=== PATIENT | male | born 1940 | race Caucasian/White ===

== ENCOUNTER → 2018-02-22 | Day surgery (SDC) | payer OTHER ==
[2018-02-20 13:41] LABS: BASOPHILS % 0.5 % (0.0-1.0); EOSINOPHILS # (AUTO) 0.2 (0.0-0.4); EOSINOPHILS % 3.2 % (0.0-6.0); HEMATOCRIT 41.5 % (38.2-49.6); HEMOGLOBIN 14.4 g/dL (14.0-18.0); LYMPHOCYTES # (AUTO) 1.4 (1.0-3.2); LYMPHOCYTES % 23.2 % (18.0-39.1); MEAN CORPUSCULAR HEMOGLOBIN 29.6 pg (28-32); MEAN CORPUSCULAR HGB CONC 34.7 g/dL (31-35); MEAN CORPUSCULAR VOLUME 85.2 fL (81-99); MONOCYTES # (AUTO) 0.6 (0.2-0.8); NEUTROPHILS % 63.6 % (38.7-80.0); PLATELET COUNT 193 x10e3/uL (140-360); RED BLOOD COUNT 4.87 x10e6/uL (4.3-5.7); RED CELL DISTRIBUTION WIDTH 13.5 % (11.7-14.4)
[2018-02-20 13:57] LABS: ALANINE AMINOTRANSFERASE 24 IU/L (0-55); ALBUMIN 3.9 g/dL (3.5-5.0); ALBUMIN/GLOBULIN RATIO 1.2 (0.8-2.0); ALKALINE PHOSPHATASE 92 IU/L (40-150); ANION GAP 12.5 mmol/L (8-16); BLOOD UREA NITROGEN 13 mg/dL (7-26); BUN/CREATININE RATIO 12 (6-25); CALCIUM 9.7 mg/dL (8.4-10.2); CARBON DIOXIDE 29 mmol/L (22-29); CHLORIDE 105 mmol/L (98-107); CREATININE, SERUM 1.11 mg/dL (0.72-1.25); EST GLOMERULAR FILTRATION RATE > 60 ML/MIN (60-); GLUCOSE 102 mg/dL (74-118); POTASSIUM 4.5 mmol/L (3.5-5.1); SODIUM 142 mmol/L (136-145)
--- NOTE | 2018-02-20 13:57 | Diagnostic Imaging Report ---
PROCEDURE: Frontal and lateral views of the chest. COMPARISON: None. INDICATIONS: PRE-OP. Bladder cancer. FINDINGS: Lines/tubes: None. Lungs: The lungs are well inflated and clear. Calcified granuloma anteriorly. There is no evidence of pneumonia or pulmonary edema. Pleura: There is no pleural effusion or pneumothorax. Heart and mediastinum: The heart and the mediastinum are normal. Atherosclerotic ulcerations in the aorta. Bones: No acute bony abnormality. IMPRESSION: No acute cardiopulmonary disease. Dictated by: Andrew Woodson M.D. on 02/20/2018 at 13:57 Electronically approved by: Andrew Woodson M.D. on 02/20/2018 at 13:57
[~2018-02-22] MED LIST: ASPIR 8181 MG PO; ATORVASTATIN CA40 MG PO; BELLADONNA/OPIUM 60 MG SUPP PR ONE; CEFTRIAXONE SOD 1 GM VIAL ONE; CLOPIDOGREL75 MG PO; DEXAMETHASONE SOD PHOS INJ 4 MG/ML VIAL ONE; ETOMIDATE 2 MG/ML 10 ML INJ IV ONE; FENTANYL CITRATE/PF 100MCG/2 ML INJ ONE; HYDROMORPHONE 1MG/1ML INJ ONE; IOPAMIDOL 610MG/1ML 300 MG/ML VIAL IV ONE; LEVOTHYROXINE25 MCG PO; LIDOCAINE HCL 2% LOCAL INJ 5 ML SDV VIAL INJ ONE; LOSARTAN POTASS25 MG PO; METOCLOPRAMIDE HCL 10 MG/2ML VIAL ONE; METOPROLOL SUCC25 MG PO; OMEPRAZOLE20 MG PO; ONDANSETRON HCL INJ 2 MG/ML VIAL ONE; PROMETHAZINE HCL (IM) 25 MG/ML VIAL ONE; SEVOFLURANE INHAL SOLN 250 ML PEN BTL ONE; SUGAMMADEX SODIUM 200 MG/2 ML VIAL IV ONE
--- OUTSIDE RECORDS SUMMARY | 2018-02-22 07:32 | XMS REPORT ---
Author Author [facility] Address Unknown Phone Unavailable Care Team Providers Care Tobacco Acreage Measurer Name Role Phone ANTONY JOHNSON Unavailable Unavailable Problems This patient has no known problems. Allergies, Adverse Reactions, Alerts This patient has no known allergies or adverse reactions. Medications This patient has no known medications. Results Test Description Test Time Test Comments Text Results Atomic Results Result Comments CHEST 2 VIEWS [place] [address] Patient Name: VICTOR MANUEL REYES MR #: [id number] : 1940 Age/Sex: 77/M Req #: [id number] Adm Physician: Ordered by: ANTONY JOHNSON MD Report #: [id number] Location: OR Room/Bed: Procedure: [id number] DX/CHEST 2 VIEWS Exam Date: 02/20/18 Exam Time: 1345 REPORT STATUS: Signed PROCEDURE: Frontal and lateral views of the chest. COMPARISON: None. INDICATIONS: PRE- OP. Bladder cancer. FINDINGS: Lines/tubes: None. Lungs: The lungs are well inflated and clear. Calcified granuloma anteriorly. There is no evidence of pneumonia or pulmonary edema. Pleura: There is no pleural effusion or pneumothorax. Heart and mediastinum: The heart and the mediastinum are normal. Atherosclerotic ulcerations in the aorta. Bones : No acute bony abnormality. IMPRESSION: No acute cardiopulmonary disease. Dictated by: Brandan Woodson M.D. on 02/20/2018 at 13:57 Electronically approved by: Brandan Woodson M.D. on 02/20/2018 at 13:57 Dictated By: BRANDAN WOODSON MD [id number] Transcribed By: LLOYD on 02/20/18 1357 COPY TO: ANTONY JOHNSON MD
--- OUTSIDE RECORDS SUMMARY | 2018-02-22 07:32 | XMS REPORT | Clinical Summary ---
Author Author [facility] Address Unknown Phone Unavailable Care Team Providers Care Meat Manager Name Role Phone Israel Chow MD PCP Allergies No Known Allergies Current Medications Prescription Sig. Disp. Refills Start End Date Status Date ciprofloxacin-dexamethaso Administer 4 drops into 7.5 mL 1 07/07/20 07/14/20 ne (CIPRODEX) 0.3-0.1 % the left ear 2 (two) 17 17 otic times a day for 7 days. 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 Encounters Date Type Specialty Care Team Description 07/07/2017 Office Visit Otolaryngology Mykel Coronel MD Hearing loss, bilateral (Primary Dx); Other chronic nonsuppurative otitis media of left ear; Mixed conductive and sensorineural hearing loss of both ears; Tympanic membrane perforation, left after 02/21/2017 Social History Tobacco Use Types Packs/Day Years Used Date Never Smoker Alcohol Use Drinks/Week oz/Week Comments Yes Sex Assigned at Date Recorded Not on file Last Filed Vital Signs Vital Sign Reading Time Taken Blood Pressure 116/72 07/07/2017 1:18 PM CDT Pulse 103 07/07/2017 1:18 PM CDT Temperature - - Respiratory Rate - - Oxygen Saturation - - Inhaled Oxygen - - Concentration Weight 87.5 kg (193 lb) 07/07/2017 1:18 PM CDT Height 180.3 cm (5' 11") 07/07/2017 1:18 PM CDT Body Mass Index 26.92 07/07/2017 1:18 PM CDT Plan of Treatment Health Maintenance Due Date Last Done Comments ZOSTER VACCINE 2001 PNEUMOCOCCAL 2006 POLYSACCHARIDE VACCINE AGE 65 AND OVER PNEUMOCOCCAL-13 2006 INFLUENZA VACCINE 06/28/2017 09/02/2014, 08/20/2013, 07/29/2013, Additional history exists Results Not on fileafter 02/21/2017 Insurance Payer Benefit Subscriber ID Type Phone Address Plan / Group [employer] x[employer] [facility]
--- NOTE | 2018-03-30 02:29 | Operative Report ---
DATE OF PROCEDURE: February 22, 2018 PREOPERATIVE DIAGNOSIS: Gross hematuria. POSTOPERATIVE DIAGNOSES 1. Gross hematuria. 2. Large right lateral wall bladder cancer (greater than 5 cm). 3. Small left posterior wall bladder cancer. OPERATIONS PERFORMED 1. Cystourethroscopy with bilateral ureteral catheterization and retrograde ureteropyelography (separate procedure performed for the diagnosis of the gross hematuria). 2. Interpretation of retrograde ureteropyelography. 3. Supervision of fluoroscopy. No radiologist present. 4. Cystourethroscopy with transurethral resection of small bladder tumor from the left posterior bladder wall. 5. Cystourethroscopy with transurethral resection of the large greater than 5 cm bladder tumor from the right lateral bladder wall. ANESTHESIA: General. COMPLICATIONS: None. CLINICAL SUMMARY: Drew Amin is a 77-year-old man with gross hematuria. He is brought for evaluation and management. He is aware of the risks of bleeding, infection, injury to adjacent structures, need for additional procedures, and elected to proceed. OPERATIVE PROCEDURE IN DETAIL: Informed consent was verified. Drew Amin was properly identified, taken to the operating room, placed on the cystoscopy table in supine position. Anesthesia was uneventfully begun. The patient was then carefully and gently re-positioned in the dorsal lithotomy position with all pressure points well padded. His genitalia were prepared and draped in the usual sterile fashion. The 22.5-Montenegrin cystoscope sheath with the visual obturator in place was atraumatically inserted in the patient's urethra. It was guided down the unremarkable distal urethra past a normal sphincteric region through the prostate bed which was significant for visually obstructing BPH. Panendoscopy of the urinary bladder revealed a small bladder tumor on the left posterior bladder wall and a very large bladder tumor greater than 5 cm located in the right lateral wall. An 8-Montenegrin catheter was used to cannulate each ureter and retrograde ureteropyelograms were performed. Interpretation of retrograde ureteropyelography: Contrast was instilled in retrograde fashion bilaterally. There were no tumors, no stones, and no diverticula. Unobstructed drainage was observed bilaterally fluoroscopically. Cold cup biopsy forceps were utilized to resect the left posterior wall bladder tumor. Bugbee electrode was utilized to fulgurate the base. We then proceeded with progressively resecting the large bladder tumor from the right lateral wall. Following resection of the tumor, fulguration of the entire tumor base as well as surrounding 1 cm for margin purposes was performed. Excellent hemostasis was achieved. We evacuated all bladder cancer, specimens and chips. The patient's bladder was drained. A belladonna and opium suppository was placed. Patient was uneventfully reversed from anesthesia and taken to recovery room in stable condition. There were no complications to the procedure. He tolerated the procedure well. Explicit postoperative instructions were given. We will plan on returning the patient in followup to the office and we will attempt to get authorized and have the insurance provide us with a 6-week supply of BCG immunotherapy. Job#: [id number]
== END | disposition home or self-care (01) ==
LOC: OR 07:29
PROVIDERS: ATTEND Urology
DX: C67.2 Malignant neoplasm of lateral wall of bladder (principal); C67.4 Malignant neoplasm of posterior wall of bladder; N40.1 Benign prostatic hyperplasia with lower urinary tract symptoms; N13.8 Other obstructive and reflux uropathy; R35.1 Nocturia; N52.9 Male erectile dysfunction, unspecified; I10 Essential (primary) hypertension; R06.09 Other forms of dyspnea; I25.10 Atherosclerotic heart disease of native coronary artery without angina pectoris; F17.200 Nicotine dependence, unspecified, uncomplicated; Z01.810 Encounter for preprocedural cardiovascular examination; Z01.812 Encounter for preprocedural laboratory examination; Z01.818 Encounter for other preprocedural examination; Z79.82 Long term (current) use of aspirin; Z79.02 Long term (current) use of antithrombotics/antiplatelets; Z98.61 Coronary angioplasty status
CPT/HCPCS: 36415; 52005; 52240; 71046; 74420; 80053; 85025; 88305; 93005; C1758; J0696; J1100; J1170; J2001; J2405; J2550; J2765; Q9967

== ENCOUNTER → 2018-04-04 | Outpatient (CLI) | payer OTHER ==
[~2018-04-04] MED LIST changes: -BELLADONNA/OPIUM 60 MG SUPP PR ONE; -CEFTRIAXONE SOD 1 GM VIAL ONE; -DEXAMETHASONE SOD PHOS INJ 4 MG/ML VIAL ONE; -ETOMIDATE 2 MG/ML 10 ML INJ IV ONE; -FENTANYL CITRATE/PF 100MCG/2 ML INJ ONE; -HYDROMORPHONE 1MG/1ML INJ ONE; +IOPAMIDOL 370 MG/ML 200 ML INFUS..BTL INJ ONE; -IOPAMIDOL 610MG/1ML 300 MG/ML VIAL IV ONE; -LIDOCAINE HCL 2% LOCAL INJ 5 ML SDV VIAL INJ ONE; -METOCLOPRAMIDE HCL 10 MG/2ML VIAL ONE; -ONDANSETRON HCL INJ 2 MG/ML VIAL ONE; -PROMETHAZINE HCL (IM) 25 MG/ML VIAL ONE; -SEVOFLURANE INHAL SOLN 250 ML PEN BTL ONE; +SODIUM CHLORIDE 0.9% 250ML 250 ML ONE; -SUGAMMADEX SODIUM 200 MG/2 ML VIAL IV ONE
[2018-04-04 13:49] LABS: BLOOD UREA NITROGEN 13 mg/dL (7-26); BUN/CREATININE RATIO 12 (6-25); CREATININE, SERUM 1.07 mg/dL (0.72-1.25); EST GLOMERULAR FILTRATION RATE > 60 ML/MIN (60-)
--- NOTE | 2018-04-04 18:25 | Diagnostic Imaging Report ---
PROCEDURE: CT ABDOMEN \T\ PELVIS W/WO CONTRAST, hematuria Protocol TECHNIQUE: The abdomen and pelvis were scanned utilizing a multidetector helical scanner from the diaphragm to the lesser trochanter before and after the IV administration of 150 cc of Isovue 370 and the oral administration of water. Coronal and sagittal multiplanar reformations were obtained. COMPARISON: None. INDICATIONS: HEMATURIA, MALIGNANT NEOPLASM OF BLADDER FINDINGS: LOWER THORAX: Bilateral lower lobe linear opacities, likely reflect subsegmental atelectasis or scarring. Mild bilateral lower lobe and mild to moderate right middle lobe bronchiectatic changes and bronchial wall thickening. Linear scarring in the right middle lobe (series 3, image 13 (. 6-7 mm calcified granuloma in the right middle lobe. 5 mm polygonal shaped nodular density in the major fissure (series 3, image 5), likely representing a benign taco-fissural nodule. Atherosclerotic calcification of the aortic valves. Coronary arteries and thoracic aorta. HEPATOBILIARY: 4 mm hypodense subcapsular lesion in hepatic segment (series 6, image 42), which is to small to characterize. No other focal lesions. Calcified granuloma in hepatic segment 8/4A (series 6 image 28). No biliary ductal dilation. Gallbladder is unremarkable. SPLEEN: Spleen is slightly enlarged, measuring 13.3 cm in AP diameter. 4 mm calcified granuloma. PANCREAS: No focal masses or ductal dilatation. ADRENALS: No adrenal nodules. KIDNEYS/URETERS: Punctate, nonobstructing calculus in the superior pole of the right kidney (series 3, image 62). No other renal or any ureteral calculi. No hydronephrosis, hydroureter, or evidence of obstruction. Symmetrical renal enhancement. No solid enhancing lesions. Subcentimeter hypodense lesion in the posterior interpolar right kidney, (series 6, image 68), which is too small to characterize. 5.5 x 5.1 x 6.0 cm, nonenhancing, fluid density, mostly exophytic simple cyst in the lateral right interpolar region. There is good contrast opacification of the renal collecting system, renal pelves, and bilateral ureters, without filling defects, strictures, or extrinsic compressions. PELVIC ORGANS/BLADDER: Mild circumferential bladder wall thickening. Focal thickening of the posterolateral bladder wall (series 6, image 160). The prostate is enlarged, measuring approximately 4.1 x 3.7 x 5.1 cm (estimated volume 40 cc) disease. PERITONEUM / RETROPERITONEUM: No free air or fluid. LYMPH NODES: No lymphadenopathy. VESSELS: Atherosclerotic calcification of the abdominal aorta and iliac vessels. Focal ectasia of the infrarenal abdominal aorta just above the bifurcation, which measures approximately 2.5 x 3.2 cm (series 3, image 108). GI TRACT: No bowel dilation or evidence of obstruction. Appendix is well identified and normal in caliber. Colonic diverticulosis, worse in the descending and sigmoid colon, without diverticulitis. BONES AND SOFT TISSUES: No aggressive lytic lesion. Multilevel degenerative disc changes in the lower thoracic and lumbosacral spine, worse at L2-L3. There is slight leftward curvature of the lumbar spine. Small bilateral fat containing inguinal hernias. IMPRESSION: 1. focal thickening of the posterolateral bladder wall, which may represent the primary neoplasm. 2. Punctate nonobstructing calculus in the superior pole of the right kidney. No other renal or any ureteral or bladder calculi. No hydronephrosis or obstruction. 3. No filling defects, strictures, or extrinsic compression in the collecting systems, pelves or ureters. 4. Mild splenomegaly. Narayan Villar M.D. Dictated by: Narayan Villar M.D. on 04/04/2018 at 18:27 Electronically approved by: Narayan Villar M.D. on 04/04/2018 at 18:27
== END ==
LOC: CT 12:07
PROVIDERS: ATTEND Urology
DX: C67.9 Malignant neoplasm of bladder, unspecified (principal); R31.0 Gross hematuria
CPT/HCPCS: 36415; 74178; 82565; 84520; J7050; Q9967